=== PATIENT | female | born 1930 | race Caucasian/White ===

== ENCOUNTER 2016-10-17 17:02 | Inpatient (IN) | payer OTHER, MEDICAID ==
[~2016-10-17] VITALS: Ht 142.2 cm; Wt 64.6 kg
[2016-10-17 18:15] VITALS: BP 126/78
[2016-10-17] MEDS ORDERED: SYNTHROID0.075 M1 (18:19)
[2016-10-17] MEDS ORDERED: AMLODIPINE5 M1 (18:19)
--- NOTE | 2016-10-17 18:22 | NUR ---
DR. HERNANDEZ EVALUATING PATIENT AT BEDSIDE.
--- NOTE | 2016-10-17 18:30 | NUR ---
PATIENT TO BED 08.
--- NOTE | 2016-10-17 18:34 | NUR ---
PATIENT PRESENTS TO ED DUE TO COUGHING X 4 DAYS, WITH FEVER. DENIES N/V/D; SKIN IS PINK/WARM/DRY; AAOX4 WITH EVEN AND STEADY GAIT; LUNGS CLEAR BL; HR EVEN AND REGULAR; PT DENIES ANY FEVER, CP, SOB, OR COUGH AT THIS TIME; PATIENT STATES PAIN OF 5/10 AT THIS TIME; PATIENT POSITIONED FOR COMFORT; HOB ELEVATED; BEDRAILS UP X2; BED DOWN. ER MD MADE AWARE OF PT STATUS.
--- NOTE | 2016-10-17 18:40 | NUR ---
PT WENT TO XRAY VIA WHEELCHAIR PT AAO, ACCOMPANIED BY DAUGHTER
[2016-10-17] MEDS ORDERED: NACL 0.9% 1,000 ML IV ONE (18:50)
[2016-10-17] MEDS ORDERED: ACETAMINOPHEN EXTRA STRENGTH 500 MG TAB PO ONE (18:50)
--- NOTE | 2016-10-17 18:50 | NUR ---
DR. HERNANDEZ EVALUATING PATIENT AT BEDSIDE.
--- NOTE | 2016-10-17 19:12 | NUR ---
Pt report given to SHANTELL. Transfer of care at this time.
[2016-10-17] MEDS ORDERED: AZITHROMYCIN 500 MG in DEXTROSE 5% 250 ML IV ONE (19:55)
[2016-10-17] MEDS ORDERED: ALBUTEROL SULFATE/IPRATROPIU 3 ML SOL IH PRN (20:05)
[2016-10-17] MEDS ORDERED: MORPHINE SULFATE 2 MG/ML SYR IVP PRN (20:05)
[2016-10-17] MEDS ORDERED: ONDANSETRON 4 MG/2 ML VIAL IVP PRN (20:05)
[2016-10-17] MEDS ORDERED: cefTRIAXone 1,000 MG VIAL ONE (20:05)
[2016-10-17] MEDS ORDERED: AZITHROMYCIN 500 MG INJ VIAL IV ONE (20:05)
[2016-10-17] MEDS ORDERED: POTASSIUM CHLORIDE 10 MEQ TABER PO ONE (20:20)
[2016-10-17] MEDS ORDERED: POTASSIUM CHLORIDE 10 MEQ TABER PO SCH (20:20)
--- NOTE | 2016-10-17 20:43 | NUR ---
Patient will be admitted to care of DR. BOYD. Admited to TELE. Will go to room 108B. Belongings list completed. Report to ELHAM GALLO.
[2016-10-17] MEDS ORDERED: PIPERACILLIN/TAZOBACTAM 2.25 GM VIAL IV ONE (21:15)
[2016-10-17] MEDS: PIPERACILLIN/TAZOBACTAM 2.25 GM in DEXTROSE 5% 50 ML IV SCH (21:18)
--- NOTE | 2016-10-17 21:20 | NUR ---
ADMITTED 86 Y/O FEMALE TO TELE FROM ER AT 2110 PM VIA [employer] WITH DX: PNA. INITIAL ASSESSMENT, BODY CHECK AND ADMISSION INTERVENTION DONE. PATIENT AAO X 4, ABLE TO FOLLOW COMMAND AND MAKE NEEDS KNOWN AND AMBULATORY WITH STEADY GAIT. NO S/S OF DISTRESS OR SOB NOTED UPON ADMISSION. STILL NOTED PATIENT HAS INTERMITTENT/ NON-PRODUCTIVE COUGH. ON O2 AT 2 L NC WITH O2 SATURATION 98 %. SKIN WARM/DRY TO TOUCH WITH NORMAL COLOR AND INTACT. NOTED DISCOLORATION BLE. INSTRUCTED PATIENT/DAUGHTER TO ROOM/ENVIRONMENT. ALSO, DISCUSSED PLAN OF CARE, PAIN MANAGEMENT AND MEDICATION REGIMEN AND BOTH VERBALIZED UNDERSTANDING. PLACED PATIENT ON SAFETY/FALL PRECAUTIONS AND WILL CONTINUE TO MONITOR. CALL LIGHT LEFT WITHIN REACH.
[2016-10-17] MEDS: NACL 0.9% 1,000 ML IV SCH (21:21)
[2016-10-17 21:30] VITALS: BP 92/58
--- NOTE | 2016-10-17 21:30 | NUR ---
ADMINISTERED K-DUR 40 MEQ, ZOSYN AND IVF MD'S ORDERED WITH EDUCATION GIVEN. PATIENT TOLERATED WELL AND NO ADVERSE REACTION OF ABX MEDICATIONS NOTED.
--- NOTE | 2016-10-17 22:26 | NUR ---
ASSISTED PATIENT TO THE RESTROOM AND BACK TO BED SAFELY. PATIENT TOLERATED ACTIVITY WELL . NO S/S OF DISTRESS NOR ANY COMPLAINT MADE. ALL NEEDS ARE ATTENDED. KEPT PATIENT IN COMFORTABLE POSITION/WARM AND WILL CONTINUE TO MONITOR.
[2016-10-17] MEDS: ALBUTEROL SULFATE/IPRATROPIU 3 ML SOL IH SCH (23:48)
[2016-10-18] VITALS: BP 90/55
--- NOTE | 2016-10-18 00:46 | NUR ---
PATIENT ASLEEP COMFORTABLY IN BED AND NO CHANGE IN CONDITION NOTED. WILL CONTINUE TO MONITOR.
[2016-10-18] MEDS: ALBUTEROL SULFATE/IPRATROPIU 3 ML SOL IH SCH ×6 (03:12→23:19)
[2016-10-18 04:00] VITALS: BP 117/71
--- NOTE | 2016-10-18 04:04 | NUR ---
PATIENT RESTED WELL AND NO CHANGE IN CONDITION NOTED. WILL CONTINUE TO MONITOR.
[2016-10-18] MEDS ORDERED: PIPERACILLIN/TAZOBACTAM 2.25 GM VIAL IV ONE (04:07)
[2016-10-18] MEDS: PIPERACILLIN/TAZOBACTAM 2.25 GM in DEXTROSE 5% 50 ML IV SCH (04:07)
[2016-10-18] MEDS: NACL 0.9% 1,000 ML IV SCH ×3 (06:03→10:49)
[2016-10-18] MEDS: LEVOTHYROXINE 0.075 MG TAB PO SCH (06:20)
--- NOTE | 2016-10-18 06:26 | NUR ---
ADMINISTERED AM MEDICATION. UNABLE TO COLLECT SPUTUM DUE TO PATIENT IS NON-PRODUCTIVE COUGH.
--- NOTE | 2016-10-18 07:26 | NUR ---
INTERPRETATION THRU KAILEE/KATIE EXPLANATION TO PATIENT WITH ACKNOWLEDGEMENT IF PRODUCING SPUTUM TO PLACE TI SPECIMEN CUP ON BEDSIDE TABLE/TRAY
--- NOTE | 2016-10-18 07:30 | NUR ---
ENDORSED PLAN OF CARE TO ELHAM ACEVEDO, AT BEDSIDE. PATIENT RESTED WELL THROUGHOUT THE SHIFT AND REMAINED IN STABLE CONDITION WITHOUT S/S OF DISTRESS NOTED.
--- NOTE | 2016-10-18 07:30 | NUR ---
KRISTINA/RN NOTIFIED OF SPUTUM CUP AT BEDSIDE FORMENTIONED AT [id number]
--- NOTE | 2016-10-18 07:31 | NUR ---
RECEIVED REPORT AT BEDSIDE. RT AT BEDSIDE, FINISHED WITH BREATHING TREATMENT, STILL HAS RESPIRATORY WHEEZES. AAOX4. AMBULATORY. IV SITE PATENT AND INTACT. CALL LIGHT WITHIN REACH.
--- NOTE | 2016-10-18 07:35 | NUR ---
DR. BOYD ROUNDED ON PATIENT.
[2016-10-18 08:00] VITALS: BP 117/66
--- NOTE | 2016-10-18 11:08 | NUR ---
PATIENT HAS BEEN SCREENED AND CATEGORIZED MODERATE NUTRITION RISK. PATIENT WILL BE SEEN WITHIN 3-5 DAYS OF ADMISSION. 10/20/16-10/22/[address]
[2016-10-18 12:00] VITALS: BP 124/71
[2016-10-18] MEDS: PIPER/TAZO 2.25GM/D5W PREMIX 50 ML IV SCH ×2 (12:09→20:23)
--- NOTE | 2016-10-18 12:38 | NUR ---
PT RESTING IN BED. FAMILY AT BEDSIDE. ALL NEEDS MET. WILL CONTINUE TO MONITOR.
--- NOTE | 2016-10-18 14:30 | NUR ---
PT RESTING IN BED. FAMILY AT BEDSIDE. ALL NEEDS MET. NO S/S OF DISTRESS NOTED. CALL LIGHT WITHIN REACH. WILL CONTINUE TO MONITOR.
--- NOTE | 2016-10-18 15:25 | NUR ---
SPUTUM COLLECTED TO LAB FOR PROCESS KRISTINA/RN NOTIFIED
[2016-10-18 16:00] VITALS: BP 118/83
--- NOTE | 2016-10-18 17:20 | NUR ---
AWAKE AND ALERT RESPONSIVE TO FOOD SAFETY DIRECTOR VERBAL COMMANDS DAUGHTERS AT BEDSIDE ACTING WHEEL FITTER FOR PATIENT TOLERATED INCENTIVE SPIROMETRY (IS) WELL WITHOUT INCIDENT ENCOURAGED PATIENT TO USE IS EVERY 2 HOURS WHILE AWAKE
--- NOTE | 2016-10-18 19:10 | NUR ---
ENDORSED PLAN OF CARE TO NIGHT NURSE GUILLERMINA AT PT BEDSIDE. NO S/S OF ACUTE DISTRESS NOTED. URINE SENT OUT TO LAB.
--- NOTE | 2016-10-18 19:20 | NUR ---
RECEIVED FROM AM RN IN BED AWAKE AND ALERT. NO SOB. DENIES PAIN AT THIS TIME. NO RESTLESSNESS NOTED. CALL LIGHT WITH IN REACH. IVF SITE TO RAC#20 INTACT AND NO INFILTRATION. DX. OF PNA. ENCOURAGED TO CALL FOR ANY HELP SHE MAY NEED OR IF IN PAIN. CARE PLANS FOR THE NIGHT DISCUSSED WITH HER. TELEMETRY MONITORING.
[2016-10-18 20:00] VITALS: BP 128/80
[2016-10-18] MEDS: SACCHAROMYCES 250 MG CAP PO SCH (20:23)
--- NOTE | 2016-10-18 22:30 | NUR ---
PT. AWAKE AND ASSISTED TO RESTROOM. ABLE TO URINATE. ENCOURAGED TO TABATHA FOR ANY HELP SHE MAY NEED. BREATHING TREATMENTS ON GOING.
[2016-10-19] VITALS: BP 95/60
--- NOTE | 2016-10-19 | NUR ---
SLEEPING. COUGHING STILL INTERMITTENTLY. BREATHING TREATMENTS WITH RT. DENIES ANY DOLOR. NO SOB. 02 SAT 100 % AFTER BREATHING TREATMENTS. PT. ENCOURAGED TO CALL FOR ASSIST. TELEMETRY MONITORING. PT. HAS TENDENCY TO GO RESTROOM BY HERSELF. BED ALARM ON.
--- NOTE | 2016-10-19 02:30 | NUR ---
PT. SLEEPING. COUGHING INTERMITTENTLY STILL. NO SOB. TELEMETRY MONITORING. CALL LIGHT WITH IN REACH. AFEBRILE.
[2016-10-19] MEDS: ALBUTEROL SULFATE/IPRATROPIU 3 ML SOL IH SCH ×6 (04:01→22:57)
[2016-10-19 04:22] VITALS: BP 98/60
--- NOTE | 2016-10-19 04:29 | NUR ---
SLEEPING. WAKES UP EASILY WHEN TOUCHED. VITAL SIGNS TAKEN. NO SOB. DENIES PAIN AT THIS TIME. TELEMETRY MONITORING.
[2016-10-19] MEDS: PIPER/TAZO 2.25GM/D5W PREMIX 50 ML IV SCH ×3 (05:14→20:57)
[2016-10-19] MEDS: LEVOTHYROXINE 0.075 MG TAB PO SCH (05:14)
--- NOTE | 2016-10-19 05:15 | NUR ---
PT. AWAKE AT THIS TIME. ILLUMINATING ENGINEER IN TO GET BLOOD SPECIMEN. DENIES ANY DOLOR. CALL LIGHT WITH IN REACH. TELEMETRY MONITORING. IVF SITE TO RAC#20 INTACT AND NO INFILTRATION NOTED.
--- NOTE | 2016-10-19 07:15 | NUR ---
RECEIVED REPORT FROM NIGHT NURSE, PT IS AAOX4 SLOVAK SPEAKING, IV RIGHT AC NS AT 40ML/HR, O2 2L VIA NC, SKIN INTACT, PT GRACE ANY PAIN, NO COUGH NOTED, REVIEWED PLAN OF CARE WITH PT, PT VERBALIZED UNDERSTANDING, INITIAL ASSESSMENT COMPLETED, ALL SAFETY/FALL PRECAUTIONS MET, CALL LIGHT WITHIN REACH, WILL CONTINUE TO MONITOR.
--- NOTE | 2016-10-19 07:35 | NUR ---
AWAKE AND ALERT RESPONSIVE TO ANIMAL SERVICES OFFICER VERBAL COMMANDS POST HHN THERAPY ENCOURAGED PATIENT WITH ACKNOWLEDGEMENT TO USE INCENTIVE SPIROMETRY
[2016-10-19 08:00] VITALS: BP 109/64
[2016-10-19] MEDS ORDERED: POTASSIUM CHLORIDE 40 MEQ, LIDOCAINE 1% 25 MG in NACL 0.9% 250 ML IV SCH (09:00)
[2016-10-19] MEDS: SACCHAROMYCES 250 MG CAP PO SCH ×2 (09:53→20:57)
--- NOTE | 2016-10-19 09:58 | NUR ---
DUE MEDICATIONS GIVEN, PT TOLERATED WELL, CURRENTLY WATCHING TV, NO S/S OF RESPIRATORY DISTRESS NOTED. CALL LIGHT WITHIN REACH. WILL CONTINUE TO MONITOR.
[2016-10-19] MEDS: NACL 0.9% 1,000 ML IV SCH (10:45)
--- NOTE | 2016-10-19 11:59 | NUR ---
CM NOTE CONCURRENT REVIEW FAXED TO [facility] / FAX# [phone], ATTN: THANH #[phone]
[2016-10-19 12:00] VITALS: BP 115/66
--- NOTE | 2016-10-19 12:00 | NUR ---
PT CURRENTLY WORKING WITH PT PULSE OX ON ROOM AIR 94% AFTER WALK PT PULSE OX 88%, PT WAS PUT BACK ON O2 2 L VIA NC. WILL CONTINUE TO MONITOR.
--- NOTE | 2016-10-19 13:17 | NUR ---
CHECKED IN ON PT, DAUGHTER AT BEDSIDE, NO S/S OF RESPIRATORY DISTRESS NOTED. ENCOURAGE PT TO USE IS , ALL NEEDS MET, CALL LIGHT WITHIN REACH. WILL CONTINUE TO MONITOR.
--- NOTE | 2016-10-19 14:52 | NUR ---
RENÉ NOTE PER RENÉ LAW FOR [facility] TO [facility] FOR HOME O2. CONTRACTED W/ [employer].
--- NOTE | 2016-10-19 15:50 | NUR ---
PT CURRENTLY VISITING WITH FAMILY, PT STATES INTERMITTED DRY COUGH. NO SOB NOTED, CALL LIGHT WITHIN REACH WILL CONTINUE TO MONITOR.
[2016-10-19 16:00] VITALS: BP 127/82
[2016-10-19] MEDS ORDERED: POTASSIUM CHLORIDE 10 MEQ TABER PO SCH (17:14)
[2016-10-19] MEDS ORDERED: FLUCONAZOLE 100 MG TAB PO SCH (17:17)
--- NOTE | 2016-10-19 17:34 | NUR ---
DUE MEDICATION GIVEN, PT TOLERATED WELL. DAUGHTERS AT BEDSIDE, NO S/S OF RESPIRATORY DISTRESS NOTED. CALL LIGHT WITHIN REACH.
--- NOTE | 2016-10-19 18:30 | NUR ---
PT CURRENTLY WALKING AROUND UNIT WITH DAUGHTER. PT TOLERATING WELL. NO S/S OF RESPIRATORY DISTRESS NOTED.
--- NOTE | 2016-10-19 19:15 | NUR ---
ENDORSED PLAN OF CARE TO NIGHT NURSE, PT IN STABLE CONDITION.
--- NOTE | 2016-10-19 19:20 | NUR ---
RECEIVED PT FROM ACOSTA RN PT FAROESE SPEAKER AAOX4 AMBULATES WITH DONKEY RIDE OPERATOR IV ;ON RT ARM INFUSING WELL ;ON TELMETRY ST RELATIVES AT BED SIDE INITIAL ASSESSMENT DONE
[2016-10-19 20:00] VITALS: BP 126/75
--- NOTE | 2016-10-19 23:00 | NUR ---
PT HAS BEEN MONITORING CLOSE SKY TELEMETRY ST RESTING ON BED NOT DISTRESS NOTED
[2016-10-20] VITALS: BP 117/72
--- NOTE | 2016-10-20 01:43 | NUR ---
PT REMAIN STBLE SLEEPING IV TKO ON RT ARM ST ON TELMETRY
[2016-10-20] MEDS: ALBUTEROL SULFATE/IPRATROPIU 3 ML SOL IH SCH ×6 (03:11→23:12)
[2016-10-20 04:00] VITALS: BP 124/75
--- NOTE | 2016-10-20 04:00 | NUR ---
PT IS ASSISTED TO THE RESTROOM VOIDING WELL ON TELE ST NOT SOB NOTED
[2016-10-20] MEDS: PIPER/TAZO 2.25GM/D5W PREMIX 50 ML IV SCH ×3 (04:52→20:29)
[2016-10-20] MEDS: LEVOTHYROXINE 0.075 MG TAB PO SCH (06:05)
--- NOTE | 2016-10-20 06:06 | NUR ---
PT RESTING ON BED DOING EXERCISES SPIROMETRY, ON TELEMETRY SR
--- NOTE | 2016-10-20 07:00 | NUR ---
RECEIVED REPORT FROM NIGHT NURSE, PT IS AAOX4 YI SPEAKING, IV RIGHT AC NS AT 40ML/HR INFUSING WELL, O2 2L VIA NC, SKIN INTACT, PT GRACE ANY PAIN, NO COUGH NOTED, REVIEWED PLAN OF CARE WITH PT, PT VERBALIZED UNDERSTANDING, INITIAL ASSESSMENT COMPLETED, ALL SAFETY/FALL PRECAUTIONS MET, CALL LIGHT WITHIN REACH, WILL CONTINUE TO MONITOR.
[2016-10-20 08:00] VITALS: BP 112/71
[2016-10-20] MEDS: SACCHAROMYCES 250 MG CAP PO SCH ×2 (09:10→21:25)
--- NOTE | 2016-10-20 09:10 | NUR ---
DUE MEDICATIONS GIVEN, ASSISTED PT TO RESTROOM AND BACK TO BED SAFELY, CALL LIGHT WITHIN REACH WILL CONTINUE TO MONITOR.
[2016-10-20] MEDS: NACL 0.9% 1,000 ML IV SCH (10:45)
--- NOTE | 2016-10-20 11:30 | NUR ---
PT CURRENTLY WALKING AROUND UNIT, PULSE OX BEFORE WALK ON O2 2L VIA NC 96%, PULSE OX DURING WALK ON ROOM AIR 93%, PULSE OX AFTER WALK ON ROOM AIR 94%. PT RETURNED TO ROOM, DAUGHTER AT BEDSIDE, CALL LIGHT WITHIN REACH, WILL CONTINUE TO MONITOR.
[2016-10-20 12:00] VITALS: BP 132/78
--- NOTE | 2016-10-20 13:05 | NUR ---
DUE MEDICATIONS GIVEN, PT CONTINUES TO USE IS, PT CURRENTLY ON ROOM AIR, DAUGHTER AT BEDSIDE, CALL LIGHT WITHIN REACH. WILL CONTINUE TO MONITOR.
--- NOTE | 2016-10-20 14:17 | NUR ---
FAXED CONCURRENT REVIEW TO [facility] [phone] PHONE THANH [phone]
--- NOTE | 2016-10-20 15:15 | NUR ---
WALKING AROUND UNIT WITH PT, NO S/S OF RESPIRATORY DISTRESS. PT DENIES ANY SOB AT THIS TIME. WILL CONTINUE TO MONITOR.
[2016-10-20 16:00] VITALS: BP 130/84
--- NOTE | 2016-10-20 17:05 | NUR ---
DAUGHTER AT BEDSIDE, PT SITTING DOWN ON CHAIR. CALL LIGHT WITHIN REACH.
--- NOTE | 2016-10-20 18:25 | NUR ---
CHECKED IN ON PT, PT CURRENTLY SITTING ON CHAIR HAVING DINNER, DAUGHTER AT BEDSIDE, CALL LIGHT WITHIN REACH.
--- NOTE | 2016-10-20 19:10 | NUR ---
ENDORSED PLAN OF CARE TO NIGHT NURSE. PT IN STABLE CONDITION, CURRENTLY SITTING IN CHAIR DAUGHTER AT BEDSIDE.
--- NOTE | 2016-10-20 19:15 | NUR ---
RECEIVED PT FROM ACOSTA RN PT ARABIC SPEAKER AAOX4 AMBULATES TO THE RESTROOM ON TELEMETRY SR, NOT SOB NOTED HL ON RT AC PATENT. RELATIVES AT BED SIDE INITIAL ASSESSMENT DONE
[2016-10-20 20:00] VITALS: BP 145/88
--- NOTE | 2016-10-20 21:30 | NUR ---
PT IS ASSISTED TO THE RESTROOM NOT SOB NOTED, ON TELE SR
[2016-10-21] VITALS: BP 111/81
--- NOTE | 2016-10-21 | NUR ---
PT SLEEPING WELL ON TELEMETRY SR REMAIN STABLE
[2016-10-21] MEDS: ALBUTEROL SULFATE/IPRATROPIU 3 ML SOL IH SCH ×6 (02:33→23:00)
[2016-10-21 04:00] VITALS: BP 114/78
--- NOTE | 2016-10-21 04:00 | NUR ---
SPONGE BATH GIVEN , LINEN CHANGED , PT IS ASSISTED TOTHE RESTROOM VOIDING WELL ON TELEMETRY SR
[2016-10-21] MEDS: PIPER/TAZO 2.25GM/D5W PREMIX 50 ML IV SCH ×3 (04:27→20:32)
[2016-10-21] MEDS: LEVOTHYROXINE 0.075 MG TAB PO SCH (05:26)
--- NOTE | 2016-10-21 06:16 | NUR ---
PT ASSISTED TO THE RESTROOM VOIDING WELL ON TELEMETRY SR, HL ON RT AC INFUSING WELL
--- NOTE | 2016-10-21 07:30 | NUR ---
RECEIVED ON BED AAOX4. NO SOB NOTED. NO C/O PAIN AT THIS TIME. IV TO RT AC PATENT AND INTACT. CHEST, DIMINISHED AIR ENTRY TO THE BASES. ABDOMEN SOFT, BOWEL SOUNDS PRESENT. NO EDEMA NOTED. INSTRUCTED PT TO CALL FOR ASSISTANCE, CALL LIGHT WITHIN REACH, PT VERBALIZED UNDERSTANDING.
[2016-10-21 08:00] VITALS: BP 120/82
[2016-10-21] MEDS: SACCHAROMYCES 250 MG CAP PO SCH ×2 (09:24→20:32)
--- NOTE | 2016-10-21 11:31 | NUR ---
PT DAUGHTER IS BEDSIDE AT THIS TIME. PT DAUGHTER DOES NOT WANT ABG DONE ON PT AT THIS TIME. INDICATIONS EXPLAINED AND STILL REFUSED. NURSE LAWRENCE AWARE.
[2016-10-21 12:00] VITALS: BP 110/75
--- NOTE | 2016-10-21 12:49 | NUR ---
10/21/16 RD INITIAL ASSESSMENT COMPLETED PLEASE REFER TO NUTRITION ASSESSMENT UNDER CARE ACTIVITY FOR ESTIMATED NEEDS. RD RECOMMENDATIONS: 1. CONTINUE REGULAR DIET TOLERATED; ADEQUATE TO MEET PT ESTIMATED KCAL AND PROTEIN NEEDS. 2. RD WILL FOLLOW UP IN 5-7 DAYS; LOW RISK ALCIDES MANDEL, TIFFANI
--- NOTE | 2016-10-21 13:00 | NUR ---
PT AND PT'S DAUGHTER MAGALI REFUSED ABG AND ULTRASOUND OF BLE (VENOUS AND ARTERIAL) . DR. DUONG MADE AWARE.
--- NOTE | 2016-10-21 15:05 | NUR ---
PT SITTING ON THE BEDSIDE CHAIR TALKING TO FAMILY. NO COMPLAINTS MADE.
[2016-10-21 16:00] VITALS: BP 106/65
--- NOTE | 2016-10-21 17:00 | NUR ---
DR. MADDOX HERE TO SEE PT.
--- NOTE | 2016-10-21 19:32 | NUR ---
PT AWAKE. NO SOB NOTED. NO COMPLAINTS MADE. ENDORSED TO NEXT SHIFT NURSE FOR CONTINUITY OF CARE.
--- NOTE | 2016-10-21 19:35 | NUR ---
RECEIVED PT AWAKE SITTING ON BEDSIDE CHAIR, VITAL SIGNS STABLE, ON ROOM AIR, NO SOB NOTED, DENIES ANY PAIN, POC DISCUSSED WITH PT AND FAMILY MEMBERS AT BEDSIDE, CALL LIGHT WITHIN REACH.
[2016-10-21 20:00] VITALS: BP 147/91
--- NOTE | 2016-10-21 22:10 | NUR ---
AMBULATORY TO BR WITH STEADY GAIT, NO SOB ON EXERTION NOTED, MONITORED CLOSELY.
--- NOTE | 2016-10-21 23:15 | NUR ---
PT IS ASLEEP, BS ARE BILAT CLEAR, HOLD HHN
--- NOTE | 2016-10-21 23:45 | NUR ---
SLEEPING, EASILY AROUSABLE, VITAL SIGNS STABLE, NO SIGNS OF RESP DISTRESS, SAT-92% ON ROOM AIR, CONTINUE TO MONITOR CLOSELY.
[2016-10-22] VITALS: BP 127/78
--- NOTE | 2016-10-22 03:50 | NUR ---
PT SLEEPING, EASILY AROUSABLE, VITAL SIGNS STABLE, SAT-93% ON ROOM AIR, NO SOB NOTED, MONITORED CLOSELY.
[2016-10-22 04:00] VITALS: BP 116/74
--- NOTE | 2016-10-22 04:00 | NUR ---
BS ARE BILAT CLEAR, PT SLEEPING.PER FAMILY LAST NIGHT TO HOLD TX IF DOES NOT NEEDED, TO LEFT HER SLEEP.
[2016-10-22] MEDS: PIPER/TAZO 2.25GM/D5W PREMIX 50 ML IV SCH ×2 (04:54→13:12)
--- NOTE | 2016-10-22 05:40 | NUR ---
DUE PO MEDICATION GIVEN, NO RESP DISTRESS NOTED.
[2016-10-22] MEDS: LEVOTHYROXINE 0.075 MG TAB PO SCH (05:45)
--- NOTE | 2016-10-22 07:15 | NUR ---
PT IN NO DISTRESS, REPORT GIVEN TO LEONEL SANDOVAL FOR CONTINUITY OF CARE.
--- NOTE | 2016-10-22 07:20 | NUR ---
ASSUMED CONTINUITY OF CARE. NO SIGNS AND SYMPTOMS OF ACUTE DISTRESS NOTED. INITIAL ASSESSMENT DONE. KEEP COMFORTABLE ON BED. EXPLAINED DIAGNOSIS, PLAN OF CARE, PAIN MANAGEMENT TEACHING, USE OF CALL LIGHT/BED/TV/BATHROOM. VERBALIZED UNDERSTANDING. FALL PRECAUTION APPLIED. CALL LIGHT WITHIN REACH.
[2016-10-22 08:00] VITALS: BP 130/83
[2016-10-22] MEDS: ALBUTEROL SULFATE/IPRATROPIU 3 ML SOL IH SCH ×2 (08:14→12:08)
[2016-10-22] MEDS: SACCHAROMYCES 250 MG CAP PO SCH (08:44)
--- NOTE | 2016-10-22 10:06 | NUR ---
AMBULATED PATIENT IN THE HALLWAY, TOLERATED WELL, NO SOB NOTED, O2 SAT CHECKED 94%, NOTIFIED DR. DUONG. WILL CONTINUE TO MONITOR.
[2016-10-22] MEDS ORDERED: FLORASTOR 33 MG1 CAP PO (10:09)
[2016-10-22] MEDS ORDERED: CLINDAMYCIN300 MG PO (10:09)
[2016-10-22] MEDS ORDERED: LEVAQUIN500 M1 PO ×2 (10:09→10:11)
[2016-10-22 11:58] VITALS: BP 124/83
--- NOTE | 2016-10-22 12:50 | NUR ---
PT. SON JACKY CAME, EXPLAINED TO PT. SON AND PT. ABOUT DIAGNOSIS, MD D/C ORDER, D/C INSTRUCTIONS AND TEACHING, MD FOLLOW-UP, MD D/C PRESCRIPTIONS LIST EDUCATION. PT. VALDEMAR RICO AND PT. VERBALIZED UNDERSTANDING.
--- NOTE | 2016-10-22 14:10 | NUR ---
D/C HOME VIA WHEELCHAIR ACCOMPANIED BY PTLor RICO. AWAKE, ALERT, AND ORIENTED X4. SPEECH CLEAR. NO C/O PAIN. NO SOB, NOTED. IN STABLE CONDITION. INFORMED CHARGE NURSE ALESSIA OG.
== END 2016-10-22 14:10 | disposition home or self-care (01) | DRG 177 ==
LOC: MED 17:02 → MTU 20:15
PROVIDERS: ADMIT Family Medicine; ATTEND Family Medicine
DX: J69.0 Pneumonitis due to inhalation of food and vomit (principal); J96.22 Acute and chronic respiratory failure with hypercapnia; N17.0 Acute kidney failure with tubular necrosis; E87.1 Hypo-osmolality and hyponatremia; J44.1 Chronic obstructive pulmonary disease with (acute) exacerbation; N39.0 Urinary tract infection, site not specified; C78.00 Secondary malignant neoplasm of unspecified lung; E87.6 Hypokalemia; E83.39 Other disorders of phosphorus metabolism; B37.3 Candidiasis of vulva and vagina; R73.03 Prediabetes; I10 Essential (primary) hypertension; E03.9 Hypothyroidism, unspecified; K44.9 Diaphragmatic hernia without obstruction or gangrene; Z79.899 Other long term (current) drug therapy; Z86.11 Personal history of tuberculosis; Z83.3 Family history of diabetes mellitus

== ENCOUNTER 2016-10-28 21:26 | Emergency (ER) | payer OTHER, MEDICAID ==
[~2016-10-28] VITALS: Ht 139.7 cm; Wt 64.4 kg
[~2016-10-28 21:26] MED LIST: AMLODIPINE5 M1; CLINDAMYCIN300 MG PO; FLORASTOR 33 MG1 CAP PO; LEVAQUIN500 M1 PO; SYNTHROID0.075 M1
[2016-10-28 21:50] VITALS: BP 150/96
--- NOTE | 2016-10-28 22:13 | NUR ---
86Y F BIB FAMILY C/O SOB 21:30 TODAY. PT STATES SHE USED HER ALBUTEROL INHALER AT ONSET OF SOB AND SINCE THEN HAS GOTTEN RELIEF . PT DENIES N/V/D; SKIN IS PINK/WARM/DRY; AAOX4 WITH EVEN AND STEADY GAIT; LUNGS CLEAR BL; HR EVEN AND REGULAR; PT DENIES ANY FEVER, CP,OR COUGH AT THIS TIME; PATIENT STATES PAIN OF 0/10 AT THIS TIME; VSS; PATIENT POSITIONED FOR COMFORT; HOB ELEVATED; BEDRAILS UP X2; BED DOWN. ER MD MADE AWARE OF PT STATUS.
--- NOTE | 2016-10-28 22:13 | NUR ---
TO ER BED 5
--- NOTE | 2016-10-28 22:23 | NUR ---
XRAY AT BEDSIDE
--- NOTE | 2016-10-28 22:44 | NUR ---
Patient being evaluated by physician DR BUCKNER at bedside.
--- NOTE | 2016-10-28 23:53 | NUR ---
Patient discharged with v/s stable. Written and verbal after care instructions given and explained. Patient verbalized understanding. Ambulatory with steady gait. All questions addressed prior to discharge. Advised to follow up with PMD.
[2016-10-28 23:54] VITALS: BP 123/78
== END 2016-10-28 23:53 | disposition home or self-care (01) ==
LOC: MED 21:46
DX: J18.9 Pneumonia, unspecified organism (principal); I10 Essential (primary) hypertension
CPT/HCPCS: 71010; 99283; Q0092

== ENCOUNTER 2017-10-10 04:20 | Inpatient (IN) | payer OTHER, MEDICAID ==
[~2017-10-10] VITALS: Ht 152.4 cm; Wt 64.0 kg
[~2017-10-10 04:20] MED LIST changes: +AMLO5TAB8; -AMLODIPINE5 M1; +CLIN300C5 PO; -CLINDAMYCIN300 MG PO; -FLORASTOR 33 MG1 CAP PO; -LEVAQUIN500 M1 PO; +LEVO500T2 PO; +SACC250C1 PO; +SYN.075; -SYNTHROID0.075 M1
[2017-10-10 04:24] VITALS: BP 108/69
[2017-10-10] MEDS ORDERED: methylPREDNISolone SS 125 MG/2 ML VIAL IVP ONE (04:40)
[2017-10-10] MEDS ORDERED: MAGNESIUM SULFATE 50% 1,000 MG in NACL 0.9% 50 ML IV ONE (04:40)
[2017-10-10] MEDS ORDERED: ALBUTEROL 0.083% 2.5 MG/3 ML NEBU INH ONE (04:40)
[2017-10-10] MEDS ORDERED: MAGNESIUM SULFATE 50% 1000 MG/2 ML VIAL IV ONE (04:47)
[2017-10-10] MEDS ORDERED: AZITHROMYCIN 500 MG in DEXTROSE 5% 250 ML IV ONE (05:50)
[2017-10-10] MEDS ORDERED: ACETAMINOPHEN EXTRA STRENGTH 500 MG TAB PO ONE (05:50)
[2017-10-10 05:59] LABS: BASOPHILS # (AUTO) 0.2 K/uL (0.00-0.22); BASOPHILS % (AUTO) 4.5 % (0.0-2.0); EOSINOPHILS % (AUTO) 0.6 % (0.0-4.0); HEMATOCRIT 43.3 % (36-48); HEMOGLOBIN 13.9 g/dL (12.0-16.0); LYMPHOCYTES # (AUTO) 0.7 K/uL (2.5-16.5); LYMPHOCYTES % (AUTO) 13.5 % (20.5-51.1); MEAN CORPUSCULAR HEMOGLOBIN 27 pg (27-31); MEAN CORPUSCULAR HGB CONC 32 g/dL (33-37); MEAN CORPUSCULAR VOLUME 84 fL (80-94); MONOCYTES # (AUTO) 0.6 K/uL (0.8-1.0); MONOCYTES % (AUTO) 11.3 % (1.7-9.3); NEUTROPHILS # (AUTO) 3.8 K/uL (1.8-7.7); NEUTROPHILS % (AUTO) 70.1 % (42.2-75.2); PLATELET COUNT (AUTO) 183 K/uL (140-450); RED BLOOD CELL COUNT(AUTO) 5.18 MIL/uL (4.20-5.40); RED CELL DISTRIBUTION WIDTH 13.1 % (11.6-13.7); WHITE BLOOD COUNT (AUTO) 5.3 K/uL (4.8-10.8)
[2017-10-10 06:12] LABS: ALBUMIN 4.2 g/dL (3.4-5.0); ANION GAP 11.5 (8-16); ASPARTATE AMINOTRANSFERASE 73 U/L (15-37); CARBON DIOXIDE 33.3 mmol/L (21-32); CHLORIDE 97 mmol/L (98-107); CREATININE 1.3 mg/dL (0.6-1.3); GLUCOSE 193 mg/dL (74-106); SODIUM SERUM 139 mmol/L (136-145); TOTAL BILIRUBIN 0.6 mg/dL (0.0-1.0); UREA NITROGEN, BLOOD 23 mg/dL (7-18)
[2017-10-10] MEDS ORDERED: cefTRIAXone 1,000 MG VIAL ONE (06:15)
[2017-10-10 06:30] LABS: POTASSIUM 2.8 mmol/L (3.5-5.1)
[2017-10-10] MEDS ORDERED: ZOLPIDEM 5 MG TAB PO PRN (06:30)
[2017-10-10] MEDS ORDERED: LORazepam 0.5 MG TAB PO PRN (06:30)
[2017-10-10] MEDS ORDERED: MORPHINE SULFATE 2 MG/ML SYR IVP PRN (06:30)
[2017-10-10] MEDS ORDERED: ACETAMINOPHEN 325 MG TAB PO PRN (06:30)
[2017-10-10] MEDS ORDERED: ONDANSETRON 4 MG/2 ML VIAL IM/IVP PRN (06:30)
[2017-10-10] MEDS ORDERED: HYDROcodone/APAP 7.5/325 MG 1 TAB PO PRN (06:30)
[2017-10-10] MEDS ORDERED: DOCUSATE SODIUM 100 MG GELCAP PO PRN (06:30)
[2017-10-10] MEDS ORDERED: ALBUTEROL SULFATE/IPRATROPIU 3 ML SOL IH PRN (06:30)
[2017-10-10 07:09] LABS: CHOL/HDL RATIO 3.2 (1-4.5); FREE T4 (FREE THYROXINE) 1.48 ng/dL (0.76-1.46); PHOSPHORUS 2.5 mg/dL (2.5-4.9); THYROID STIMULATING HORMONE 0.49 uIU/mL (0.34-3.74)
[2017-10-10 07:57] LABS: PROTHROMBIN TIME 11.6 secs (10.8-13.4)
[2017-10-10 08:00] VITALS: BP 81/49
[2017-10-10] MEDS: NACL 0.9% 1,000 ML IV SCH ×2 (08:00→16:26)
[2017-10-10 08:26] VITALS: BP 94/70
[2017-10-10 12:00] VITALS: BP 102/59
[2017-10-10] MEDS ORDERED: PIPER/TAZO 3.375GM/D5W PREMIX 50 ML IV SCH (12:00)
[2017-10-10] MEDS ORDERED: PIPER/TAZO 2.25GM/D5W PREMIX 50 ML IV SCH (12:15)
[2017-10-10] MEDS: methylPREDNISolone SS 125 MG/2 ML VIAL IVP SCH ×2 (13:10→20:09)
[2017-10-10] MEDS: ALBUTEROL SULFATE/IPRATROPIU 3 ML SOL IH SCH ×2 (13:24→19:30)
[2017-10-10] MEDS ORDERED: KCL 20 MEQ/WATER INJ PREMIX 200 ML IV SCH (14:06)
[2017-10-10] MEDS ORDERED: LEVO0.083 PO (14:29)
[2017-10-10] MEDS ORDERED: HYDR-3293 PO (14:29)
[2017-10-10] MEDS ORDERED: POTASSIUM CHLORIDE 40 MEQ, LIDOCAINE 1% 25 MG in NACL 0.9% 250 ML IV SCH (15:15)
[2017-10-10 16:00] VITALS: BP 89/55
[2017-10-10] MEDS: PIPER/TAZO 2.25GM/D5W PREMIX 50 ML IV SCH ×2 (17:41→23:05)
[2017-10-10 20:00] VITALS: BP 105/62
[2017-10-10] MEDS: OSELTAMIVIR PHOSPHATE 75 MG CAP PO SCH (20:08)
[2017-10-11] VITALS: BP 104/60
[2017-10-11] MEDS: NACL 0.9% 1,000 ML IV SCH ×4 (02:26→20:08)
[2017-10-11 04:00] VITALS: BP 103/61
[2017-10-11] MEDS: methylPREDNISolone SS 125 MG/2 ML VIAL IVP SCH (04:07)
[2017-10-11] MEDS: PIPER/TAZO 2.25GM/D5W PREMIX 50 ML IV SCH ×4 (05:34→23:00)
[2017-10-11] MEDS: LEVOTHYROXINE 0.088 MG TAB PO SCH (05:35)
[2017-10-11 07:15] LABS: BASOPHILS % (AUTO) 0.5 % (0.0-2.0); EOSINOPHILS % (AUTO) 0.2 % (0.0-4.0); HEMOGLOBIN 12.8 g/dL (12.0-16.0); LYMPHOCYTES # (AUTO) 0.4 K/uL (2.5-16.5); LYMPHOCYTES % (AUTO) 4.6 % (20.5-51.1); MEAN CORPUSCULAR HEMOGLOBIN 28 pg (27-31); MEAN CORPUSCULAR HGB CONC 34 g/dL (33-37); MEAN CORPUSCULAR VOLUME 83 fL (80-94); MONOCYTES # (AUTO) 0.4 K/uL (0.8-1.0); MONOCYTES % (AUTO) 4.6 % (1.7-9.3); NEUTROPHILS # (AUTO) 6.9 K/uL (1.8-7.7); NEUTROPHILS % (AUTO) 90.1 % (42.2-75.2); PLATELET COUNT (AUTO) 174 K/uL (140-450); RED BLOOD CELL COUNT(AUTO) 4.58 MIL/uL (4.20-5.40); RED CELL DISTRIBUTION WIDTH 13.2 % (11.6-13.7); WHITE BLOOD COUNT (AUTO) 7.7 K/uL (4.8-10.8)
[2017-10-11 07:58] LABS: ANION GAP 11.7 (8-16); CARBON DIOXIDE 32.5 mmol/L (21-32); CHLORIDE 104 mmol/L (98-107); CREATININE 1.1 mg/dL (0.6-1.3); GLUCOSE 169 mg/dL (74-106); POTASSIUM 4.2 mmol/L (3.5-5.1); SODIUM SERUM 144 mmol/L (136-145); UREA NITROGEN, BLOOD 21 mg/dL (7-18)
[2017-10-11 08:00] VITALS: BP 104/69
[2017-10-11] MEDS: ALBUTEROL SULFATE/IPRATROPIU 3 ML SOL IH SCH ×3 (08:41→19:37)
[2017-10-11 08:46] LABS: T4 (THYROXINE) 8.6 ug/dL (4.5-12.0)
[2017-10-11] MEDS: LOSARTAN 50 MG TAB PO SCH (09:00)
[2017-10-11] MEDS: amLODIPine 5 MG TAB PO SCH (09:00)
[2017-10-11] MEDS: LACTOBACILLUS RHAMNOSUS GG 1 EACH CAP PO SCH (09:34)
[2017-10-11] MEDS: HYDROCHLOROTHIAZIDE 25 MG TAB PO SCH (09:34)
[2017-10-11] MEDS: OSELTAMIVIR PHOSPHATE 75 MG CAP PO SCH ×2 (09:34→20:04)
[2017-10-11 12:00] VITALS: BP 112/63
[2017-10-11] MEDS: methylPREDNISolone SS 40 MG/ML VIAL IVP SCH ×2 (13:43→20:03)
[2017-10-11 16:00] VITALS: BP 110/70
[2017-10-11 20:00] VITALS: BP 114/72
[2017-10-12] VITALS: BP 119/77
[2017-10-12 03:21] LABS: BARBITURATE, URINE NEG. ng/ml (NEG <=200); BENZODIAZEPINE, URINE NEG. ng/mL (NEG <=200); CANNABINOID, URINE NEG. ng/mL (NEG <=50); COCAINE, URINE NEG. ng/mL (NEG <=300); OPIATE, URINE NEG. ng/mL (NEG <=2000); PHENCYCLIDINE SCREEN,URINE NEG. ng/mL (NEG <=25)
[2017-10-12 04:00] VITALS: BP 124/79
[2017-10-12 04:00] LABS: APPEARANCE,URINE CLEAR (CLEAR); BILIRUBIN,URINE NEGATIVE (NEGATIVE); BLOOD, URINE 1+ (NEGATIVE); COLOR,URINE YELLOW (YELLOW); LEUKOCYTE ESTERASE ,URINE 2+ (NEGATIVE); NITRITE, URINE NEGATIVE (NEGATIVE); PH,URINE 5.5 (5.0-9.0); UGLUCOSE NEGATIVE (NEGATIVE)
[2017-10-12] MEDS: methylPREDNISolone SS 40 MG/ML VIAL IVP SCH (04:40)
[2017-10-12 04:58] LABS: RBC,URINE 0-5 (RARE) /HPF (0-5)
[2017-10-12] MEDS: PIPER/TAZO 2.25GM/D5W PREMIX 50 ML IV SCH (05:19)
[2017-10-12] MEDS: LEVOTHYROXINE 0.088 MG TAB PO SCH (06:02)
[2017-10-12] MEDS: ALBUTEROL SULFATE/IPRATROPIU 3 ML SOL IH SCH ×2 (06:42→12:08)
[2017-10-12 08:00] VITALS: BP 114/71
[2017-10-12] MEDS: LOSARTAN 50 MG TAB PO SCH (09:00)
[2017-10-12] MEDS ORDERED: TAM75 PO (09:00)
[2017-10-12] MEDS: amLODIPine 5 MG TAB PO SCH (09:00)
[2017-10-12] MEDS ORDERED: LACT10CA1 PO (09:02)
[2017-10-12] MEDS ORDERED: AMOX-999 PO (09:02)
[2017-10-12] MEDS: OSELTAMIVIR PHOSPHATE 75 MG CAP PO SCH (09:29)
[2017-10-12] MEDS: HYDROCHLOROTHIAZIDE 25 MG TAB PO SCH (09:29)
[2017-10-12] MEDS: LACTOBACILLUS RHAMNOSUS GG 1 EACH CAP PO SCH (09:29)
== END 2017-10-12 13:35 | disposition home or self-care (01) | DRG 177 ==
LOC: MED 04:20 → MTU 06:15
PROVIDERS: ADMIT Family Medicine Sports Medicine; ATTEND Family Medicine Sports Medicine
DX: J69.0 Pneumonitis due to inhalation of food and vomit (principal); J96.21 Acute and chronic respiratory failure with hypoxia; D68.59 Other primary thrombophilia; J44.1 Chronic obstructive pulmonary disease with (acute) exacerbation; N39.0 Urinary tract infection, site not specified; J10.1 Influenza due to other identified influenza virus with other respiratory manifestations; E03.9 Hypothyroidism, unspecified; I10 Essential (primary) hypertension; R73.03 Prediabetes; E87.6 Hypokalemia; R91.8 Other nonspecific abnormal finding of lung field; Z83.3 Family history of diabetes mellitus
CPT/HCPCS: 36415; 71045; 71250; 80048; 80053; 80305; 81001; 82150; 83036; 83690; 83735; 83880; 84100; 84436; 84439; 84443; 84479; 84484; 85025; 85610; 85730; 87040; 87070; 87081; 87086; 87205; 87804; 93005; 94640; 96365; 99285; J0696; J2001; J2543; J2920; J2930; J3475; J3480; J7030; J7613; J7620; Q0092